=== PATIENT | female | born 1985 | race Caucasian/White ===

== ENCOUNTER → 2016-10-03 | Outpatient (CLI) | payer SELFPAY ==
--- NOTE | 2016-10-03 11:00 | MRI ---
MRI right shoulder without contrast INDICATION: Shoulder pain and popping grinding no specific injury chronic symptoms TECHNIQUE: Noncontrast MR imaging right shoulder standard protocol FINDINGS: Minimal AC joint hypertrophic osteoarthrosis. No displaced labral tear. No advanced glenohumeral arthrosis. Mild tendinosis supraspinatus and infraspinatus. No high-grade partial or full-thickness tear. Minimal bursal edema. Mild type III morphology of the acromion. Minimal grade 1 marbling of the rotator cuff muscle bellies. Subscapularis is intact. Long head bicep is intact. IMPRESSION: No acute internal derangement right shoulder Mild AC joint osteoarthrosis No bursal edema Rotator cuff tendinosis without high-grade partial or full-thickness tear Mild type III acromial morphology. Electronically signed by: Osmani Pisano MD 10/03/2016 10:59 AM CDT
== END | disposition home or self-care (01) ==
LOC: MRI 07:49
PROVIDERS: ATTEND Family Medicine
DX: M19.011 Primary osteoarthritis, right shoulder (principal)